=== PATIENT | male | born 1975 | race Caucasian/White ===

== ENCOUNTER 2020-12-25 21:03 | Emergency (ER) | payer OTHER ==
[~2020-12-25 21:03] MED LIST: ADULT LOW DOSE81 MG PO; AUGMENTIN 875-1 EACH PO; IMDUR ER TAB 3030 MG PO; LOPRESSOR 25 MG25 MG PO; NITROSTAT 0.40.4 MG SL
[2020-12-25 21:52] LABS: HEMOGLOBIN 14.1 gm/dl (14.0-17.5); RED BLOOD COUNT 4.69 M/UL (4.20-5.50); WHITE BLOOD COUNT 6.6 K/UL (4.5-11.0)
[2020-12-25 22:11] LABS: BUN/CREATININE RATIO 17 (0-10)
== END 2020-12-26 08:06 ==
LOC: ER1 21:03
PROVIDERS: Family Medicine; Physician Assistant
DX: F32.9 Major depressive disorder, single episode, unspecified (principal); R73.9 Hyperglycemia, unspecified; F15.90 Other stimulant use, unspecified, uncomplicated; Z20.822 Contact with and (suspected) exposure to COVID-19
CPT/HCPCS: 80053; 80307; 81001; 85025; 93005; 99285; G0480; U0002

== ENCOUNTER → 2021-10-27 | Outpatient (CLI) | payer OTHER | LOC: CT 13:24 | DX: K83.8 Other specified diseases of biliary tract (principal) | CPT/HCPCS: Q9967 ==